=== PATIENT | female | born 1950 | race Caucasian/White ===

== ENCOUNTER 2019-03-28 20:49 | Emergency (ER) | payer MEDICARE, BC ==
[2019-03-28 21:02] VITALS: RESP 16
--- NOTE | 2019-03-28 21:16 | ED ---
Female Urogenital HPI - General Chief complaint: Vaginal Bleeding Stated complaint: Urogenital Time Seen by Provider: 03/28/19 21:15 Source: patient Mode of arrival: ambulatory Limitations: no limitations - History of Present Illness Initial comments: Lungs a 69-year-old female presents the ER today for evaluation of 2 days of feeling like there is a small of tissue coming out of her vagina. Patient is status post total hysterectomy greater than 20 years ago. Patient reports that over the past couple of days she's noticed pressure in her pelvis and over the past 2 days has noticed a ball of tissue seems to be coming out of her vagina. She's never experienced this before. She states the tissues seem to be getting irritated tissues applying Vaseline to the area. Patient denies any concern for sexual transmitted infections she's had no vaginal discharge. - Related Data Home Medications Medication Instructions Recorded Confirmed Aspirin EC [Ecotrin Low Dose] 81 mg PO HS 03/28/19 03/28/19 Multivit-Min/Iron/Folic/Lutein 1 tab PO HS 03/28/19 03/28/19 [Centrum Silver Women Tablet] Vitamin B Complex 1 cap PO HS 03/28/19 03/28/19 Allergies Allergy/AdvReac Type Severity Reaction Status Date / Time No Known Allergies Allergy Verified 03/28/19 21:34 Review of Systems ROS Statement: Those systems with pertinent positive or pertinent negative responses have been documented in the HPI. ROS Other: All systems not noted in ROS Statement are negative. Past Medical History Past Medical History: No Reported History History of Any Multi-Drug Resistant Organisms: None Reported Past Surgical History: Hysterectomy Past Psychological History: No Psychological Hx Reported Smoking Status: Current every day smoker Past Alcohol Use History: None Reported Past Drug Use History: None Reported General Exam - General Exam Comments Initial Comments: Physical Exam GENERAL: Patient is well-developed and well-nourished. Patient is nontoxic and well-hydrated and is in no distress. HENT: Normocephalic, Atraumatic. EYES: PERRL, EOMI PULMONARY: Unlabored respirations. CARDIOVASCULAR: RRR ABDOMEN: Soft and nontender with normal bowel sounds. SKIN: Skin is clear with no lesions or rashes and otherwise unremarkable. : Normal external genitalia Vaginal cuff unremarkable there is some skin irritation and breakdown on the anterior vaginal wall, there is bladder prolapse into the vagina NEUROLOGIC: Patient is alert and oriented x3. Moving all extremities spontaneously MUSCULOSKELETAL: Normal extremities with adequate strength and full range of motion. No lower extremity swelling or edema. No calf tenderness. PSYCHIATRIC: Normal psychiatric evaluation. Limitations: no limitations Course Vital Signs 03/28/19 03/28/19 20:57 22:17 Temperature 98.2 F 97.9 F Pulse Rate 73 68 Respiratory 16 16 Rate Blood Pressure 150/86 128/72 O2 Sat by Pulse 99 98 Oximetry Medical Decision Making - Medical Decision Making Patient was seen and evaluated is obtained from patient History and physical exam are consistent with bladder prolapse there is some skin irritation in the vaginal canal supportive care was discussed the importance of follow up with gynecology and discussion of possible pessary ice were discussed. All questions pertaining care were answered patient was discharged home in stable condition. Disposition Clinical Impression: Bladder prolapse Disposition: HOME SELF-CARE Condition: Stable Instructions (If sedation given, give patient instructions): Vaginitis (ED) Is patient prescribed a controlled substance at d/c from ED?: No Referrals: Jeanie Sainz DO [Primary Care Provider] - 1-2 days Haley Nunn MD [STAFF PHYSICIAN] - 1-2 days Zbigniew Nunez MD [STAFF PHYSICIAN] - 1-2 days Martha Henry DO [Doctor of Osteopathic Medicine] - 1-2 days
[2019-03-28 22:17] VITALS: BP 128/72; PULSE 68; TEMP 97.9
== END 2019-03-28 22:18 | disposition home or self-care (01) ==
LOC: EC 20:49
DX: N81.10 Cystocele, unspecified (principal); F17.200 Nicotine dependence, unspecified, uncomplicated; Z90.710 Acquired absence of both cervix and uterus
CPT/HCPCS: 99283

== ENCOUNTER → 2020-12-14 | Outpatient (CLI) | payer OTHER ==
--- NOTE | 2020-12-14 13:31 | XR ---
EXAMINATION TYPE: XR chest 2V DATE OF EXAM: 12/14/2020 Clinical history: Pain after lifting a desk, aspiration Comparison: None TECHNIQUE: Frontal and lateral views of the chest are obtained. FINDINGS: Heart size is within normal limits. No focal consolidation, pneumothorax or pleural effusi on. Minimal atelectasis or scarring is linear at the left lung base. Degenerative changes of the thor acic spine. IMPRESSION: 1. Minimal linear atelectasis or scarring at the left lung base.
--- NOTE | 2020-12-14 13:37 | XR ---
EXAMINATION TYPE: XR lumbar spine 2 or 3V, XR thoracic spine complete DATE OF EXAM: 12/14/2020 CLINICAL HISTORY: 70-year-old with pain after lifting a desk TECHNIQUE: AP lateral and cone-down lateral view of lumbar spine. COMPARISON: None FINDINGS: There are 5 nonrib-bearing lumbar-type vertebral bodies. No loss of vertebral body height. Mild multi level intervertebral disc space narrowing . Multiple anterior osteophytes. There is no significant sp ondylolisthesis. Degenerative changes of the facets are seen. IMPRESSION: 1. No acute compression fracture of the lumbar spine. Mild degenerative changes.
== END | disposition home or self-care (01) ==
LOC: RADXRMAIN 12:56
PROVIDERS: ATTEND Emergency Medicine
DX: M47.816 Spondylosis without myelopathy or radiculopathy, lumbar region (principal); S23.3XXA Sprain of ligaments of thoracic spine, initial encounter; S39.012A Strain of muscle, fascia and tendon of lower back, initial encounter; S29.012A Strain of muscle and tendon of back wall of thorax, initial encounter
CPT/HCPCS: 71046; 72072; 72100

== ENCOUNTER → 2021-02-08 | Outpatient (CLI) | payer OTHER ==
--- NOTE | 2021-02-08 09:35 | MR ---
EXAMINATION TYPE: MR lumbar spine wo con DATE OF EXAM: 02/08/2021 COMPARISON: X-ray 12/14/2020 HISTORY: Strain of lower back TECHNIQUE: T1 and T2 axial and sagittal images of the lumbar spine are submitted. FINDINGS: There is no abnormal signal seen within the visualized spinal cord or paraspinal soft tissu es. There is loss of disc signal at all levels with evidence of multilevel mild degenerative disc dis ease. Images of the lower thoracic spine also demonstrates similar findings with multilevel degenerat magdalena disc disease. At T12/L1 and minimal central disc bulging but no canal stenosis or foraminal encroachment. No discre te herniation. At L1-2 there is there is no disc herniation or canal stenosis. No foraminal encroachment. At L2-3 there is hypertrophic change of the facets and ligamentum flavum. Mild bilateral foraminal en croachment with circumferential disc bulging. No Canal stenosis. At L3-4 there is hypertrophic change of the facets and ligamentum flavum. Mild bilateral foraminal en croachment with circumferential disc bulging At L4-5 there is hypertrophic change of the facets and ligamentum flavum. Mild bilateral foraminal en croachment with circumferential disc bulging At L5-S1 there is facet arthropathy with very mild broad-based central disc bulging greater paracentr ally the left. No significant foraminal encroachment. There is a prominent cystic structure in the right abdomen anterior to the right kidney. IMPRESSION: 1. Multilevel degenerative disc disease and mild disc bulging but no evidence of canal stenosis. Mult ilevel foraminal encroachment as discussed above most marked at L4-5. 2. Multilevel facet arthropathy. 3. There is a prominent cystic structure in the right abdomen of indeterminate etiology port CT scan of the abdomen is recommended.
== END | disposition home or self-care (01) ==
LOC: RADMRIMAIN 08:00
PROVIDERS: ATTEND Emergency Medicine
DX: M51.27 Other intervertebral disc displacement, lumbosacral region (principal); M51.36 Other intervertebral disc degeneration, lumbar region; M47.817 Spondylosis without myelopathy or radiculopathy, lumbosacral region
CPT/HCPCS: 72148

== ENCOUNTER → 2023-05-29 | Outpatient (CLI) | payer MEDICARE, BC ==
--- NOTE | 2023-06-02 21:16 | MM ---
Reason for Exam: Screening (asymptomatic). Last mammogram was performed 20 year(s) and 2 month(s) ago. Patient History: Menarche at age 17. Hysterectomy at age 48. Postmenopausal. Patient used Estrogen for 4 years. Risk Values: Roseanna 5 year model risk: 1.1%. NCI Lifetime model risk: 3.2%. Prior Study Comparison: 12/09/2000 Right Special View Mammogram, [facility]. 03/11/2002 Bilateral Screening Mammogram, [facility]. 03/16/2003 Bilateral Screening Mammogram, [facility]. Tissue Density: There are scattered fibroglandular densities. Findings: Analyzed By CAD. Centrally located focal asymmetry at a middle depth within the right breast. Breast for which further evaluation is recommended. Otherwise, no suspicious microcalcification or other discrete abnormality is seen. Overall Assessment: Incomplete: need additional imaging evaluation, BI-RAD 0 Management: Special View Mammogram of the right breast. Diagnostic Breast Ultrasound of the right breast. Additional views right breast include spot 3-D CC, spot 3-D MLO, and 3 lateral views. Targeted right breast ultrasound for any persisting abnormality. [facility] will attempt to contact patient to return for supplemental views and ultrasound if indicated. Electronically signed and approved by: Garo Rodríguez M.D. Radiologist
== END | disposition home or self-care (01) ==
LOC: RADMAMWWP 14:10
PROVIDERS: ATTEND Family Medicine
DX: Z12.31 Encounter for screening mammogram for malignant neoplasm of breast (principal); Z78.0 Asymptomatic menopausal state
CPT/HCPCS: 77063; 77067

== ENCOUNTER → 2023-06-09 | Outpatient (CLI) | payer MEDICARE, BC ==
--- NOTE | 2023-06-09 10:55 | USB ---
Reason for Exam: Additional evaluation requested from abnormal screening. Patient History: Menarche at age 17. First Full-Term at age 20. Hysterectomy at age 48. Postmenopausal. Patient used Estrogen for 4 years. Risk Values: Roseanna 5 year model risk: 1.1%. NCI Lifetime model risk: 3.2%. Technique: Method: Targeted. Prior Study Comparison: 03/11/2002 Bilateral Screening Mammogram, [facility]. 03/16/2003 Bilateral Screening Mammogram, [facility]. 05/29/2023 Bilateral MG 3D screening mammo w/cad, [facility]. Findings: The upper section of the breast of the right breast, the axilla of the right breast and the retroareolar of the right breast were scanned. Targeted ultrasound superior aspect of the right breast 11:00 to 1:00 including the subareolar region and axilla. No solid or cystic lesion or axillary lymphadenopathy. Overall Assessment: Probably benign, BI-RAD 3 Management: Diagnostic Mammogram of the right breast in 6 months. A clinical breast exam by your physician is recommended on an annual basis and results should be correlated with mammographic findings. This exam should not preclude additional follow-up of suspicious palpable abnormalities. Results were given to the patient verbally at the time of exam. Electronically signed and approved by: Garo Rodríguez M.D. Radiologist
--- NOTE | 2023-06-09 10:57 | MM ---
Reason for Exam: Additional evaluation requested from abnormal screening. Last screening mammogram was performed less than 1 month ago. Patient History: Menarche at age 17. First Full-Term at age 20. Hysterectomy at age 48. Postmenopausal. Patient used Estrogen for 4 years. Risk Values: Roseanna 5 year model risk: 1.1%. NCI Lifetime model risk: 3.2%. Tissue Density: Right: There are scattered fibroglandular densities. Findings: Analyzed By CAD. The 12:00 focal asymmetry a completely disperses on spot 3-D cc and 3-D lateral appears to disperse on spot 3-D MLO view. On the tomographic images, the area becomes less defined. Further ultrasound evaluation recommended. Overall Assessment: Incomplete: need additional imaging evaluation, BI-RAD 0 Management: Diagnostic Breast Ultrasound of the right breast. Electronically signed and approved by: Garo Rodríguez M.D. Radiologist
== END | disposition home or self-care (01) ==
LOC: RADMAMWWP 10:19
PROVIDERS: ATTEND Family Medicine
DX: R92.321 Mammographic fibroglandular density, right breast (principal); Z78.0 Asymptomatic menopausal state
CPT/HCPCS: 77065; 76642; G0279; 77061

== ENCOUNTER → 2024-09-15 | Outpatient (CLI) | payer MEDICARE, BC ==
[2024-09-15 12:38] LABS: African American GFR (CKD) 58 (>60 ml/min/1.73 sqM); Blood Urea Nitrogen 15 mg/dL (7-17); Non-African American GFR(CKD) 50 (>60 ml/min/1.73 sqM)
--- NOTE | 2024-09-15 14:32 | CT ---
CT urogram HISTORY: Hematuria. COMPARISON: None TECHNIQUE: Multiple axial images are obtained through the abdomen and pelvis before and after the une ventful administration of nonionic IV contrast. Delayed postcontrast images were obtained. 3-D postpr ocessing was performed. FINDINGS: Lung bases are clear. There are moderate emphysematous changes in the lung bases. On the pre-IV contrast images, there are no gallstones. There is a 5.3 mm nonobstructing right renal calcification 4.4 mm nonobstructing left renal calcification. The gallbladder is normal and there is no distention or biliary ductal dilatation. There is a 6 mm hepatic cyst in the left lobe of the liver. There is no focal mass or organomegaly in volving the pancreas, spleen or adrenal glands. Kidneys excrete contrast promptly and symmetrically and there is no solid renal mass, or filling def ect within the renal collecting systems or ureters. There is mild chronic hydronephrosis of the right kidney and ureter. There are small filling defects within the urinary bladder at the ureterovesical junction consistent likely small ureteroceles. The possibility of neoplasm cannot be entirely exclude d and direct inspection may be indicated. The bowel loops are normal in caliber and there is no dilatation or obstruction. No inflammatory perkins ges are identified in the bowel wall or mesentery. There is no free intraperitoneal air or fluid. There is no pelvic mass, free fluid, abscess or adenopathy. There is surgical absence of the uterus. The osseous structures are intact. IMPRESSION: 1. Single nonobstructing bilateral renal calcifications. 2. Mild chronic right and hydroureter. 3. small filling defects at the ureterovesical junction likely small ureteroceles. Direct inspection may be indicated to exclude bladder neoplasm for large hepatic cyst left lobe of the liver. [facility], , 09/15/2024 2:29 PM
== END | disposition home or self-care (01) ==
LOC: RADCTMAIN 11:51
PROVIDERS: ATTEND Urology
DX: N13.4 Hydroureter (principal); R31.1 Benign essential microscopic hematuria
CPT/HCPCS: 82565; 84520; 74178; 36415; 74400; Q9967